=== PATIENT | female | born 1980 | race Hispanic/Latino ===

== ENCOUNTER 2024-05-19 13:46 | Emergency (ER) | payer BC, MEDICARE, OTHER ==
[~2024-05-19] VITALS: Ht 154.9 cm; Wt 77.1 kg
--- NOTE | 2024-05-19 14:07 | ERN ---
General Chief Complaint: Toe Pain/Injury Stated Complaint: FOOT INJURY Time Seen by MD: 13:47 Time Seen by Midlevel: 13:47 Source: patient History of Present Illness Initial Comments 43-year-old female who presents to the emergency department due to right foot injury. Patient reports she was carrying a TV and it fell landing on her right foot great toe. Reports pain but states she is able to apply weight. Previous injury to the right lower leg requiring internal fixation otherwise denies significant past medical history. Allergies: Coded Allergies: No Known Drug Allergies (Unverified Allergy, Unknown, 05/19/24) Past Medical History Past Medical History: No Pertinent History Past Surgical History: Other Surgical History Other: RIGHT FOOT SX ROS Dictation Constitutional: Negative for fever,chills, and weight loss Eyes: Negative for injury, pain,redness, and discharge ENT: Negative for injury,pain or swelling Cardiovascular: Negative for chest pain, palpitations, and edema Respiratory: Negative for shortness of breath, cough, and wheezing, Abdomen/GI: Negative for abdominal pain, nausea, vomiting, diarrhea, and constipation Back: Negative for injury and pain : Negative for painful urination, bleeding or discharge MS/Extremity: Positive for right foot pain. Negative for injury and deformity Skin: Negative for rash, and discoloration Neuro: Negative for headache, weakness, numbness, tingling, and seizure Psych: Negative for suicide ideation, homicidal ideation, and hallucinations Physical Exam Physical Exam Dictation General: awake, alert, no acute distress Head/Face: Normocephalic, atraumatic Eyes: PERRL, EOMI, normal conjunctiva ENT: oral cavity clear, oral mucosa moist Neck: Supple, normal range of motion Cardiovascular: RRR, normal S1/S2 Respiratory: CTAB, no respiratory distress Skin: Warm, dry, normal turgor, no rash MS/Extremity: Pulses equal, no cyanosis, neurovascular intact, FROM. Right foot tenderness to palpation of the 1st toe with no obvious deformities, subungual hematoma approximately 15% Neuro: COAx4, GCS 15, strength 5/5, CN 2-12 intact, normal cerebellar exam, normal gait Psych: Normal behavior, mood, and affect normal Results EKG/XRAY/US/CT/MRI X-RAY Comment REASON: Injury, pain ORDERING PHYSICIAN: RENEE PENA PROCEDURE: FT 3VW RT - FOOT COMP 3+VWS RT RIGHT FOOT RADIOGRAPHS - 3 VIEWS INDICATION: Pain COMPARISON: None FINDINGS: AP, lateral, and oblique views. No acute fracture or subluxation identified. Midfoot alignment is well maintained. No radiopaque foreign body noted. IMPRESSION: No evidence for fracture or subluxation. DICTATED BY: TASNEEM ENCINAS MD DATE: 05/19/24 1443 [facility] MDM: Differential diagnosis: Rationale: 43-year-old female who presents to the emergency department due to right foot injury. Patient reports she was carrying a TV and it fell landing on her right foot great toe. Reports pain but states she is able to apply weight. Previous injury to the right lower leg requiring internal fixation otherwise denies significant past medical history. Per physical examination right foot tenderness to palpation of the 1st toe with no obvious deformities, subungual hematoma approximately 15%. X-rays obtained with no indications of fractures or dislocations. Patient was educated on findings and diagnosis. Advised to follow up with PCP. Return to the emergency department if any worsening symptoms. Patient verbalized understanding. Patient stable for discharge. There are no social concerns with this patient. I independently interpreted the test that were performed, results were reviewed by me and considered findings on radiology if ordered. Medical management and examination interpretation discussions were had by me with other qualified healthcare professionals as indicated for the patient's care. ED Course Orders Procedure Category Date Status Time Foot Comp 3+Vws Rt RAD 05/19/24 Resulted 14:01 Acetaminophen 500mg PHA 05/19/24 Complete Tab (Tylenol 500mg T 14:30 Current Medications Medications (Trade) Dose Ordered Sig/Radha Route PRN Reason Start Time Stop Time Status Last Admin Dose Admin Acetaminophen (TYLenol 500MG TAB) 1,000 mg ONCE ONCE PO 05/19/24 14:30 05/19/24 14:31 DC 05/19/24 15:18 Vital Signs Date Time Temp Pulse Resp B/P (MAP) Pulse Ox O2 Delivery O2 Flow Rate FiO2 05/19/24 15:22 97.9 85 49 137/88 Room Air* 0 21 05/19/24 13:57 97.2 88 16 144/91 98 Room Air DX & DISP Disposition: Discharge Departure Impression: Primary Impression: Hematoma, subungual, great toe, right Additional Impression: Injury of right great toe Condition: Stable Additional Instructions: Discharge home. Rest. Follow up with primary care in 24 hours. Return to the ER for any acute changes or worsening symptoms. If any medications were prescribed take as directed. Okay to continue home medications unless otherwise discussed during your visit in the emergency room today. Patient was also advised to follow-up with primary care physician in 1 to 2 days for continued monitoring. Referrals: SELF,REFERRAL (PCP) I performed the substantive portion of the visit. I have reviewed and perso dominik made and approve the management plan that is documented in the notes by myself or the [facility]. I acknowledge full responsibility for the patient's management plan. RENEE PENA May 19, 2024 14:06
--- NOTE | 2024-05-19 14:45 | HMCIMG ---
RIGHT FOOT RADIOGRAPHS - 3 VIEWS INDICATION: Pain COMPARISON: None FINDINGS: AP, lateral, and oblique views. No acute fracture or subluxation identified. Midfoot alignment is well maintained. No radiopaque foreign body noted. IMPRESSION: No evidence for fracture or subluxation.
[2024-05-19] MEDS: acetaMINOPHEN 500 MG TABLET PO ONE (15:18)
[2024-05-19 15:22] VITALS: BP 137/88; PULSE 85; RESP 49; TEMP 97.9
== END 2024-05-19 15:23 | disposition home or self-care (01) ==
LOC: EDH 13:46
DX: S90.211A Contusion of right great toe with damage to nail, initial encounter (principal); W18.39XA Other fall on same level, initial encounter; Y93.89 Activity, other specified; Y92.89 Other specified places as the place of occurrence of the external cause; Y99.8 Other external cause status
CPT/HCPCS: 73630; 99283